=== PATIENT | female | born 1965 | race Caucasian/White ===

== ENCOUNTER 2017-10-12 12:40 | Emergency (ER) | payer SELFPAY ==
[2017-10-12 12:49] VITALS: BP 134/78
[2017-10-12] MEDS ORDERED: ONDANSETRON 4 MG TAB.RAPDIS PO ONE (13:52)
[2017-10-12] MEDS ORDERED: ONDANSETRON ODT 4 MG TAB (6 TAB/ER DISP) PO PRN (14:08)
--- NOTE | 2017-10-12 14:12 | ER Document Report ---
ED GI/ - General Mode of Arrival: Ambulatory Information source: Patient TRAVEL OUTSIDE OF THE [place] IN LAST 30 DAYS: No - General Chief Complaint: Nausea/Vomiting/Diarrhea Stated Complaint: NAUSEA Time Seen by Provider: 10/12/17 13:52 Notes: Patient is a 51 year old female presenting to the emergency department complaining of nausea and diarrhea onset this morning. Patient states she has had 3 episodes of diarrhea today with some upper quadrant abdominal pain. 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 Patient denies vomiting or blood in stool. (ADINA LOMELI) - Related Data Allergies/Adverse Reactions: No Known Allergies Allergy (Verified 10/12/17 12:42) Past Medical History - General Information source: Patient - Social History Smoking Status: Current Every Day Smoker Chew tobacco use (# tins/day): No Frequency of alcohol use: Occasional Drug Abuse: None Family History: Reviewed & Not Pertinent Patient has suicidal ideation: No Patient has homicidal ideation: No Past Surgical History: Reports: Hx Orthopedic Surgery - clavicle Review of Systems - Review of Systems Constitutional: No symptoms reported EENT: No symptoms reported Cardiovascular: No symptoms reported Respiratory: No symptoms reported Gastrointestinal: See HPI, Abdominal pain, Diarrhea, Nausea Genitourinary: No symptoms reported Female Genitourinary: No symptoms reported Musculoskeletal: No symptoms reported Skin: No symptoms reported Hematologic/Lymphatic: No symptoms reported Neurological/Psychological: No symptoms reported -: Yes All other systems reviewed and negative Physical Exam - Vital signs Vitals: Temp Pulse Resp BP Pulse Ox 98.4 F 90 18 134/78 H 97 10/12/17 12:48 10/12/17 12:48 10/12/17 12:48 10/12/17 12:48 10/12/17 12:48 - Notes Notes: GENERAL: Alert, interacts well. No acute distress. HEAD: Normocephalic, atraumatic. EYES: Pupils equal, round, and reactive to light. Extraocular movements intact. ENT: Oral mucosa moist, tongue midline. NECK: Full range of motion. Supple. Trachea midline. LUNGS: Clear to auscultation bilaterally, no wheezes, rales, or rhonchi. No respiratory distress. HEART: Regular rate and rhythm. No murmurs, gallops, or rubs. ABDOMEN: Soft, tender to palaption in the supraumbilcus area. Non-distended. Bowel sounds present in all 4 quadrants. EXTREMITIES: Moves all 4 extremities spontaneously. NEUROLOGICAL: Alert and oriented x3. Normal speech. PSYCH: Normal affect, normal mood. SKIN: Warm, dry, normal turgor. No rashes or lesions noted. (ADINA LOMELI) - Vital Signs Vital signs: Temp Pulse Resp BP Pulse Ox 98.4 F 90 18 134/78 H 97 10/12/17 12:48 10/12/17 12:48 10/12/17 12:48 10/12/17 12:48 10/12/17 12:48 Discharge - Discharge Clinical Impression: Nausea Diarrhea Qualifiers: Diarrhea type: unspecified type Qualified Code(s): R19.7 - Diarrhea, unspecified Condition: Stable Disposition: HOME, SELF-CARE Additional Instructions: Please take [id number] Pepto-Bismol as needed for diarrhea. You have also been given Zofran for nausea in the emergency department. As we discussed please seek medical care in the next 24 hours if you begin to experience constant localized abdominal pain. You will need further reevaluation and consideration of imaging. Forms: Return to Work Scribe Attestation: 10/13/17 23:10 I personally performed the services described documentation, reviewed and edited the documentation which was dictated to describe my presence, and it accurately records my words and actions. (JHOANA COLMENARES) Scribe Documentation - Scribe Written by Scribe:: Adina Lomeli, Julio César, 10/12/2017 14:13 acting as scribe for :: David
== END 2017-10-12 14:32 | disposition home or self-care (01) ==
LOC: ER 12:40
DX: R11.2 Nausea with vomiting, unspecified (principal); R19.7 Diarrhea, unspecified; R10.10 Upper abdominal pain, unspecified; F17.200 Nicotine dependence, unspecified, uncomplicated
CPT/HCPCS: 99283; S0119